=== PATIENT | female | born 1940 | race American Indian/Alaskan Native ===

== ENCOUNTER → 2017-06-05 | Outpatient (CLI) | payer OTHER ==
[~2017-06-05] MED LIST: ALBU90OI6 INH; ALL DAY ALLERGY10 M1 PO; ALLO300 PO; AMLO5 PO; ASPI81CH PO; ASPI81EC PO; ATECHL PO; ATEN50 PO; Aspir 8181 MG PO; Atenolol50 MG PO; CALCAVITD PO; CALPHO600 PO; CYCL10 PO; Calcium + Vita1 EACH PO; DOCU100 PO; FERR325 PO; FISH1000 PO; FLAX PO; GEMF600 PO; Garlic Oil1000 MG PO; Gemfibrozil600 MG PO; HYDHCL25 PO; HYDR1TAB94 PO; LEVEMIR FL100 UNIT/1 SC; LOSA50 PO; METF500 PO; MULVITMIND PO; Multivitamin1 EAC2 PO; NAPR375 PO; Novolog Fl100 UNIT/1 SC; OXYB5 PO; Omeprazole20 M1 PO; PRED10 PO; PRED20; Prednisone20 MG PO; SIMV40 PO; Simvastatin20 MG PO; TRIHYD5075 PO; Vitamin D2000 UNIT PO; WARF1
[2017-06-05 14:48] LABS: BASOPHILS ABSOLUTE AUTO 0.03 K/mm3 (0.00-0.23); BASOPHILS PERCENT AUTO 0 % (0-2); EOSINOPHILS ABSOLUTE AUTO 0.37 K/mm3 (0.00-0.68); EOSINOPHILS PERCENT AUTO 4 % (0-6); Hematocrit 41.1 % (33.0-51.0); Hemoglobin 13.8 g/dL (11.5-16.0); IMMATURE GRAN ABSOLUTE AUTO 0.02 K/mm3 (0.00-0.10); IMMATURE GRAN PERCENT AUTO 0 % (0-1); LYMPHOCYTES ABSOLUTE AUTO 1.29 K/mm3 (0.84-5.20); LYMPHOCYTES PERCENT AUTO 15 % (21-46); MONOCYTES ABSOLUTE AUTO 0.42 K/mm3 (0.16-1.47); MONOCYTES PERCENT AUTO 5 % (4-13); Mean Corpuscular HGB 29.7 pg (26.0-34.0); Mean Corpuscular HGB Conc 33.6 g/dL (31.5-36.5); Mean Corpuscular Volume 88 fL (80-100); Mean Platelet Volume 9.9 fL (9.1-12.4); NEUTROPHILS ABSOLUTE AUTO 6.38 K/mm3 (1.96-9.15); NEUTROPHILS PERCENT AUTO 75 % (41-73); Platelet Count 233 K/mm3 (150-400); RDW Coefficient Variation 13.5 % (11.7-14.2); RDW Standard Deviation 43.2 fL (35.1-46.3); Red Blood Cell Count 4.65 M/mm3 (3.80-5.20); White Blood Cell Count 8.51 K/mm3 (4.00-11.30)
[2017-06-05 14:59] LABS: Alanine Aminotransfer (ALT/SGP 54 U/L (12-78); Albumin, Blood 3.6 g/dL (3.4-5.0); Albumin/Globulin Ratio 0.8 (0.8-1.8); Alk Phos 140 U/L (40-126); Anion Gap 8 mmol/L (6-16); Aspartate Aminotrans (AST/SGOT 37 U/L (12-37); Bilirubin, Total 0.3 mg/dL (0.1-1.0); Blood Urea Nitrogen 15 mg/dL (8-24); Bun/Creatinine Ratio 18.8 (12.0-20.0); CO2, Blood 27 mmol/L (21-32); Calcium, Blood 9.7 mg/dL (8.5-10.1); Chloride, Blood 103 mmol/L (98-108); Globulin, Blood 4.4 g/dL (2.2-4.0); Glomerular Filtration Rate >60 (60-); Glucose, Blood 115 mg/dL (70-99); Potassium, Blood 3.5 mmol/L (3.5-5.5); Sodium, Blood 138 mmol/L (136-145)
== END ==
LOC: LAB SHORT 14:42
PROVIDERS: Physician Assistant
DX: R51 Headache (principal)
CPT/HCPCS: 80053; 85025; 85651

== ENCOUNTER 2017-06-11 09:01 | Day surgery (SDC) | payer OTHER ==
[~2017-06-11] VITALS: Ht 149.9 cm; Wt 78.9 kg
[~2017-06-11 09:01] MED LIST changes: -ALBU90OI6 INH; -ALL DAY ALLERGY10 M1 PO; -ASPI81CH PO; -ATECHL PO; -Calcium + Vita1 EACH PO; -HYDHCL25 PO; -LEVEMIR FL100 UNIT/1 SC; -METF500 PO; -Multivitamin1 EAC2 PO; -Novolog Fl100 UNIT/1 SC; -OXYB5 PO; -Omeprazole20 M1 PO; -PRED10 PO; -PRED20; -Prednisone20 MG PO; -Simvastatin20 MG PO; -Vitamin D2000 UNIT PO
[2017-06-11] MEDS ORDERED: SIMV40 PO (09:59)
[2017-06-11] MEDS ORDERED: OXYB5 PO (10:00)
[2017-06-11] MEDS ORDERED: PRED20 (10:01)
== END 2017-06-11 12:52 | disposition home or self-care (01) ==
LOC: ORSCSDS 09:01
PROVIDERS: Otolaryngology
PROC: 03BS0ZX Excision of Right Temporal Artery, Open Approach, Diagnostic (ICD-10-PCS; principal; 2017-06-11 10:15)
DX: M31.6 Other giant cell arteritis (principal); I10 Essential (primary) hypertension; E78.00 Pure hypercholesterolemia, unspecified; E66.01 Morbid (severe) obesity due to excess calories; Z68.36 Body mass index [BMI] 36.0-36.9, adult; Z79.82 Long term (current) use of aspirin; Z79.899 Other long term (current) drug therapy
CPT/HCPCS: 88305; 88313; 93005; 93010; J0171; J0360; J2250; J3010; J7120

== ENCOUNTER 2017-07-19 15:18 | Observation (INO) | payer OTHER ==
[~2017-07-19] VITALS: Ht 147.3 cm; Wt 75.9 kg
[~2017-07-19 15:18] MED LIST changes: +OXYB5 PO; +PRED20
[2017-07-19] MEDS ORDERED: ALL DAY ALLERGY10 M1 PO (15:25)
[2017-07-19] MEDS ORDERED: ASPI81CH PO (15:25)
[2017-07-19] MEDS ORDERED: ALLO300 PO (15:25)
[2017-07-19] MEDS ORDERED: ATECHL PO (15:26)
[2017-07-19] MEDS ORDERED: GEMF600 PO (15:27)
[2017-07-19] MEDS ORDERED: HYDHCL25 PO (15:27)
[2017-07-19] MEDS ORDERED: LOSA50 PO (15:27)
[2017-07-19] MEDS ORDERED: Calcium + Vita1 EACH PO (15:27)
[2017-07-19] MEDS ORDERED: Multivitamin1 EAC2 PO (15:28)
[2017-07-19] MEDS ORDERED: Prednisone20 MG PO (15:28)
[2017-07-19] MEDS ORDERED: Omeprazole20 M1 PO (15:28)
[2017-07-19] MEDS ORDERED: Simvastatin20 MG PO (15:29)
[2017-07-19] MEDS ORDERED: ALBU90OI6 INH (15:29)
[2017-07-19] MEDS ORDERED: Vitamin D2000 UNIT PO (15:29)
[2017-07-19 15:53] LABS: BASOPHILS ABSOLUTE AUTO 0.02 K/mm3 (0.00-0.23); BASOPHILS PERCENT AUTO 0 % (0-2); EOSINOPHILS ABSOLUTE AUTO 0.07 K/mm3 (0.00-0.68); EOSINOPHILS PERCENT AUTO 1 % (0-6); Hematocrit 42.6 % (33.0-51.0); Hemoglobin 14.3 g/dL (11.5-16.0); IMMATURE GRAN ABSOLUTE AUTO 0.08 K/mm3 (0.00-0.10); IMMATURE GRAN PERCENT AUTO 1 % (0-1); LYMPHOCYTES ABSOLUTE AUTO 0.96 K/mm3 (0.84-5.20); LYMPHOCYTES PERCENT AUTO 10 % (21-46); MONOCYTES ABSOLUTE AUTO 0.45 K/mm3 (0.16-1.47); MONOCYTES PERCENT AUTO 5 % (4-13); Mean Corpuscular HGB 29.4 pg (26.0-34.0); Mean Corpuscular HGB Conc 33.6 g/dL (31.5-36.5); Mean Corpuscular Volume 88 fL (80-100); Mean Platelet Volume 11.1 fL (9.1-12.4); NEUTROPHILS ABSOLUTE AUTO 7.76 K/mm3 (1.96-9.15); NEUTROPHILS PERCENT AUTO 83 % (41-73); Platelet Count 196 K/mm3 (150-400); RDW Coefficient Variation 13.5 % (11.7-14.2); Red Blood Cell Count 4.86 M/mm3 (3.80-5.20); White Blood Cell Count 9.34 K/mm3 (4.00-11.30)
[2017-07-19 16:21] LABS: Alanine Aminotransfer (ALT/SGP 33 U/L (12-78); Albumin, Blood 3.2 g/dL (3.4-5.0); Albumin/Globulin Ratio 0.7 (0.8-1.8); Alk Phos 235 U/L (50-136); Anion Gap 12 mmol/L (6-16); Aspartate Aminotrans (AST/SGOT 17 U/L (12-37); Bilirubin, Total 0.5 mg/dL (0.1-1.0); Blood Urea Nitrogen 33 mg/dL (8-24); CO2, Blood 28 mmol/L (21-32); Calcium, Blood 9.6 mg/dL (8.5-10.1); Chloride, Blood 81 mmol/L (98-108); Creatinine, Blood 1.03 mg/dL (0.40-1.00); Globulin, Blood 4.3 g/dL (2.2-4.0); Glomerular Filtration Rate 55 (60-); Glucose, Blood 1058 mg/dL (70-99); Potassium, Blood 3.6 mmol/L (3.5-5.5); Sodium, Blood 121 mmol/L (136-145); Total Protein, Blood 7.5 g/dL (6.4-8.2)
[2017-07-19 16:49] LABS: Troponin I <0.015 ng/mL (0.000-0.040)
[2017-07-19 18:30] LABS: CHOL/HDL RATIO 6.8; Cholesterol 270 mg/dL (50-200); HDL Cholesterol 40 mg/dL (>39)
[2017-07-19 19:09] LABS: Glucose, Blood 812 mg/dL (70-99)
[2017-07-19 19:10] LABS: LDL/HDL RATIO Unable to Calculate; Low Density Lipoprotein Chol Unable to Calculate mg/dL (0-110); Triglycerides 1204 mg/dL (30-160); Very Low Density Lipoprot Chol 241 mg/dL (6-32)
[2017-07-19 21:07] LABS: Glucose, Blood 663 mg/dL (70-99)
[2017-07-19 21:58] LABS: Glucose, Blood 557 mg/dL (70-99)
[2017-07-20 00:33] LABS: CPK Creatine Kinase 66 U/L (26-193); Troponin I <0.015 ng/mL (0.000-0.040)
[2017-07-20 01:37] LABS: Source, Urine Clean Catch
[2017-07-20 01:39] LABS: Bilirubin, Urine Neg (Neg); Blood, Urine 2+ (Neg); Glucose Qualitative, Urine 4+ (Neg); Ketones, Urine Neg (Neg); Leukocyte Esterase, Urine 2+ (Neg); Nitrite, Urine Neg (Neg); Protein, Urine 2+ (Neg); Urobilinogen, Urine NORM (Normal)
[2017-07-20 01:46] LABS: Appearance, Urine Hazy (Clear); Bacteria Few /hpf; Color, Urine Yellow (P-Yellow); Red Blood Cells, Urine 0-2 /hpf (0-2); Squamous Epithelial Cells Not Seen /hpf (Few); White Blood Cells, Urine 50-100 /hpf (0-5); Yeast/Fungi Urine Few /hpf
[2017-07-20 02:15] LABS: BASOPHILS ABSOLUTE AUTO 0.02 K/mm3 (0.00-0.23); BASOPHILS PERCENT AUTO 0 % (0-2); EOSINOPHILS PERCENT AUTO 2 % (0-6); Hematocrit 37.7 % (33.0-51.0); Hemoglobin 13.1 g/dL (11.5-16.0); IMMATURE GRAN ABSOLUTE AUTO 0.11 K/mm3 (0.00-0.10); IMMATURE GRAN PERCENT AUTO 1 % (0-1); LYMPHOCYTES PERCENT AUTO 22 % (21-46); MONOCYTES ABSOLUTE AUTO 0.46 K/mm3 (0.16-1.47); MONOCYTES PERCENT AUTO 5 % (4-13); Mean Corpuscular HGB 29.4 pg (26.0-34.0); Mean Corpuscular HGB Conc 34.7 g/dL (31.5-36.5); Mean Corpuscular Volume 85 fL (80-100); Mean Platelet Volume 10.5 fL (9.1-12.4); NEUTROPHILS ABSOLUTE AUTO 6.53 K/mm3 (1.96-9.15); NEUTROPHILS PERCENT AUTO 70 % (41-73); Platelet Count 163 K/mm3 (150-400); RDW Coefficient Variation 13.2 % (11.7-14.2); RDW Standard Deviation 40.3 fL (35.1-46.3); Red Blood Cell Count 4.46 M/mm3 (3.80-5.20); White Blood Cell Count 9.32 K/mm3 (4.00-11.30)
[2017-07-20 02:27] LABS: CPK Creatine Kinase 69 U/L (26-193); Troponin I <0.015 ng/mL (0.000-0.040)
[2017-07-20 02:38] LABS: Alanine Aminotransfer (ALT/SGP 31 U/L (12-78); Albumin, Blood 2.8 g/dL (3.4-5.0); Albumin/Globulin Ratio 0.7 (0.8-1.8); Alk Phos 141 U/L (50-136); Anion Gap 7 mmol/L (6-16); Aspartate Aminotrans (AST/SGOT 17 U/L (12-37); Bilirubin, Total 0.4 mg/dL (0.1-1.0); Blood Urea Nitrogen 22 mg/dL (8-24); Bun/Creatinine Ratio 28.4 (12.0-20.0); CO2, Blood 30 mmol/L (21-32); Calcium, Blood 8.6 mg/dL (8.5-10.1); Chloride, Blood 97 mmol/L (98-108); Creatinine, Blood 0.78 mg/dL (0.40-1.00); Globulin, Blood 3.9 g/dL (2.2-4.0); Glomerular Filtration Rate >60 (60-); Glucose, Blood 320 mg/dL (70-99); Potassium, Blood 2.5 mmol/L (3.5-5.5); Total Protein, Blood 6.7 g/dL (6.4-8.2)
[2017-07-20 02:45] LABS: Sodium, Blood 134 mmol/L (136-145)
[2017-07-20 13:25] LABS: Magnesium, Blood 1.7 mg/dL (1.6-2.4)
[2017-07-20 13:26] LABS: Potassium, Blood 3.7 mmol/L (3.5-5.5)
[2017-07-21 05:28] LABS: BASOPHILS ABSOLUTE AUTO 0.01 K/mm3 (0.00-0.23); BASOPHILS PERCENT AUTO 0 % (0-2); EOSINOPHILS ABSOLUTE AUTO 0.05 K/mm3 (0.00-0.68); EOSINOPHILS PERCENT AUTO 1 % (0-6); Hematocrit 38.1 % (33.0-51.0); Hemoglobin 13.1 g/dL (11.5-16.0); IMMATURE GRAN ABSOLUTE AUTO 0.07 K/mm3 (0.00-0.10); IMMATURE GRAN PERCENT AUTO 1 % (0-1); LYMPHOCYTES ABSOLUTE AUTO 1.27 K/mm3 (0.84-5.20); LYMPHOCYTES PERCENT AUTO 14 % (21-46); MONOCYTES ABSOLUTE AUTO 0.49 K/mm3 (0.16-1.47); MONOCYTES PERCENT AUTO 6 % (4-13); Mean Corpuscular HGB 29.6 pg (26.0-34.0); Mean Corpuscular HGB Conc 34.4 g/dL (31.5-36.5); Mean Corpuscular Volume 86 fL (80-100); Mean Platelet Volume 11.1 fL (9.1-12.4); NEUTROPHILS ABSOLUTE AUTO 7.01 K/mm3 (1.96-9.15); NEUTROPHILS PERCENT AUTO 79 % (41-73); Platelet Count 164 K/mm3 (150-400); RDW Coefficient Variation 13.2 % (11.7-14.2); RDW Standard Deviation 41.5 fL (35.1-46.3); Red Blood Cell Count 4.43 M/mm3 (3.80-5.20)
[2017-07-21 06:21] LABS: Alanine Aminotransfer (ALT/SGP 37 U/L (12-78); Albumin, Blood 2.6 g/dL (3.4-5.0); Albumin/Globulin Ratio 0.7 (0.8-1.8); Alk Phos 100 U/L (50-136); Anion Gap 11 mmol/L (6-16); Aspartate Aminotrans (AST/SGOT 22 U/L (12-37); Bilirubin, Total 0.4 mg/dL (0.1-1.0); Blood Urea Nitrogen 21 mg/dL (8-24); CO2, Blood 24 mmol/L (21-32); Calcium, Blood 8.6 mg/dL (8.5-10.1); Chloride, Blood 99 mmol/L (98-108); Creatinine, Blood 0.78 mg/dL (0.40-1.00); Globulin, Blood 3.6 g/dL (2.2-4.0); Glomerular Filtration Rate >60 (60-); Glucose, Blood 361 mg/dL (70-99); Phosphorus, Blood 1.4 mg/dL (2.5-4.9); Potassium, Blood 3.6 mmol/L (3.5-5.5); Sodium, Blood 134 mmol/L (136-145); Total Protein, Blood 6.2 g/dL (6.4-8.2)
[2017-07-22] MEDS ORDERED: ATEN50 PO (13:24)
[2017-07-22] MEDS ORDERED: PRED10 PO (13:24)
[2017-07-22] MEDS ORDERED: Novolog Fl100 UNIT/1 SC (13:25)
[2017-07-22] MEDS ORDERED: LEVEMIR FL100 UNIT/1 SC (13:26)
[2017-07-22] MEDS ORDERED: METF500 PO (13:27)
== END 2017-07-22 15:25 | disposition home or self-care (01) ==
LOC: ER 15:18 → ICUW 15:19 → MEDS 07-20 12:49
PROVIDERS: Internal Medicine; Physician Assistant
DX: E11.65 Type 2 diabetes mellitus with hyperglycemia (principal); E87.1 Hypo-osmolality and hyponatremia; E87.8 Other disorders of electrolyte and fluid balance, not elsewhere classified; E83.39 Other disorders of phosphorus metabolism; E87.6 Hypokalemia; I10 Essential (primary) hypertension; K21.9 Gastro-esophageal reflux disease without esophagitis; E78.00 Pure hypercholesterolemia, unspecified; N17.9 Acute kidney failure, unspecified; E66.9 Obesity, unspecified; I82.509 Chronic embolism and thrombosis of unspecified deep veins of unspecified lower extremity; Z79.82 Long term (current) use of aspirin; Z79.899 Other long term (current) drug therapy; Z79.52 Long term (current) use of systemic steroids; Z96.641 Presence of right artificial hip joint; Z98.890 Other specified postprocedural states
CPT/HCPCS: 36415; 71045; 80053; 80061; 81001; 82550; 82947; 83036; 83735; 84100; 84132; 84484; 85025; 85651; 87086; 93005; 93010; 93306; 96360; 96361; 96372; 99285; G0378; J1650; J1815; J7030; J7060

== ENCOUNTER → 2017-11-11 | Outpatient (CLI) | payer OTHER ==
[~2017-11-11] MED LIST changes: +ALBU90OI6 INH; +ALL DAY ALLERGY10 M1 PO; +ASPI81CH PO; +ATECHL PO; +Calcium + Vita1 EACH PO; +HYDHCL25 PO; +LEVEMIR FL100 UNIT/1 SC; +METF500 PO; +Multivitamin1 EAC2 PO; +Novolog Fl100 UNIT/1 SC; +Omeprazole20 M1 PO; +PRED10 PO; +Prednisone20 MG PO; +Simvastatin20 MG PO; +Vitamin D2000 UNIT PO
== END ==
LOC: LAB SHORT 14:00 → LAB EV 14:00
DX: E11.649 Type 2 diabetes mellitus with hypoglycemia without coma (principal)
CPT/HCPCS: 82043

== ENCOUNTER 2018-05-24 06:48 | Day surgery (SDC) | payer MEDICARE ==
[~2018-05-24] VITALS: Ht 147.3 cm; Wt 69.1 kg
[~2018-05-24 06:48] MED LIST changes: +Aspirin EC81 MG PO; +MULTI VITAMIN1 EACH PO; +NAPR500 PO; +Super Calcium600 MG PO; +VITAMIN D32000 UNIT PO
--- NOTE | 2018-05-24 08:08 | NUR ---
05/24/18 0808 Lobo Silva PT REPORTS HAVING ALLERGY TO SHELLFISH AND SHRIMP. PT DENIES ANY ALLERGY TO BETADINE.
--- NOTE | 2018-05-24 08:49 | NUR ---
05/24/18 0849 Felicia Wyman 0835 DC'D HOME AMB W/INST FOR CARE AND F/U. IFTIKHAR P[O WELL. NO C/O T/O RECOVERY. MAXINE INTACT
== END 2018-05-24 08:35 | disposition home or self-care (01) ==
LOC: ORSCSDS 06:48
PROVIDERS: Ophthalmology
PROC: 08RK3JZ Replacement of Left Lens with Synthetic Substitute, Percutaneous Approach (ICD-10-PCS; principal; 2018-05-24 08:00)
DX: H25.12 Age-related nuclear cataract, left eye (principal); I10 Essential (primary) hypertension; E11.319 Type 2 diabetes mellitus with unspecified diabetic retinopathy without macular edema; Z79.4 Long term (current) use of insulin; Z79.84 Long term (current) use of oral hypoglycemic drugs; Z79.899 Other long term (current) drug therapy; Z79.82 Long term (current) use of aspirin; G47.33 Obstructive sleep apnea (adult) (pediatric)
CPT/HCPCS: J2250; J3010; V2632

== ENCOUNTER 2020-10-01 03:55 | Inpatient (IN) | payer MEDICARE ==
[~2020-10-01] VITALS: Ht 162.6 cm; Wt 70.0 kg
[2020-10-01 04:18] LABS: Source, Urine Catheter
[2020-10-01 04:21] LABS: Hematocrit 37.5 % (33.0-51.0); Hemoglobin 12.3 g/dL (11.5-16.0); Mean Corpuscular HGB Conc 32.8 g/dL (31.5-36.5); Mean Corpuscular Volume 88 fL (80-100); Mean Platelet Volume 9.8 fL (9.1-12.4); Platelet Count 226 K/mm3 (150-400); RDW Coefficient Variation 14.6 % (11.7-14.2); RDW Standard Deviation 46.8 fL (35.1-46.3); Red Blood Cell Count 4.24 M/mm3 (3.80-5.20); White Blood Cell Count 12.98 K/mm3 (4.00-11.30)
[2020-10-01 04:26] LABS: Bilirubin, Urine Neg (Neg); Blood, Urine 4+ (Neg); Glucose Qualitative, Urine Neg (Neg); Ketones, Urine Neg (Neg); Leukocyte Esterase, Urine 3+ (Neg); Nitrite, Urine Pos (Neg); Protein, Urine 3+ (Neg); Specific Gravity, Urine 1.015 (1.003-1.022); Urobilinogen, Urine NORM (Normal)
[2020-10-01 04:31] LABS: Appearance, Urine Hazy (Clear); Color, Urine Yellow (P-Yellow)
[2020-10-01 04:33] LABS: Albumin, Blood 3.2 g/dL (3.4-5.0); Albumin/Globulin Ratio 0.6 (0.8-1.8); Bilirubin, Total 0.6 mg/dL (0.1-1.0); Bun/Creatinine Ratio 18.4 (12.0-20.0); Calcium, Blood 9.9 mg/dL (8.5-10.1); Creatinine, Blood 1.52 mg/dL (0.40-1.00); Globulin, Blood 5.3 g/dL (2.2-4.0); Potassium, Blood 4.1 mmol/L (3.5-5.5); Total Protein, Blood 8.5 g/dL (6.4-8.2)
[2020-10-01 04:35] LABS: Amorphous Mod (0-Heavy); Bacteria Many /hpf; Squamous Epithelial Cells Not Seen /hpf (Few); White Blood Cells, Urine 50-100 /hpf (0-5)
[2020-10-01 04:41] LABS: BAND PERCENT MAN 15 % (0-8); BASOPHILS ABSOLUTE MAN 0.12 K/mm3 (0.00-0.23); BASOPHILS PERCENT MAN 1 % (0-2); EOSINOPHILS PERCENT MAN 0 % (0-6); LYMPHOCYTES PERCENT MAN 7 % (21-46); MONOCYTES PERCENT MAN 7 % (4-13); NEUTROPHILS ABSOLUTE MAN 11.03 K/mm3 (1.96-9.15); SEG NEUTROPHILS PERCENT MAN 70 % (41-73); TOTAL CELLS COUNTED 100
[2020-10-01] MEDS ORDERED: METFORMIN HCL500 M3 PO (06:46)
[2020-10-01] MEDS ORDERED: OLMESARTAN MEDO40 MG PO (06:48)
--- NOTE | 2020-10-01 06:48 | NUR ---
Transfer report from [facility] in ER on PT being admitted with UTI urosepis. PT has hx of bilat carpal tunner release & bilat hip replacement. Will be on Tele monitor, tx as ordered for septic PT. Await admission
[2020-10-01] MEDS ORDERED: ALLER-TEC PO (10:59)
--- NOTE | 2020-10-01 15:44 | NUR ---
PATIENT ARRIVED TO ROOM 357 RIGHT AT SHIFT CHANGED AND WAS TRANSFERED INTO HOSPITAL BED WITH THE ASSISTANCE OF HOSPITAL STAFF. FAUSTINA PENA COMPLETED THE H&P AND MED REC WITH THE PATIENTS ASSISTANCE WELL WITH USING THE MED REC FROM [employer] [facility]. THE PATIENT IS ALERT AND ORIENTED WITH SOME FORGETFULNESS. HAD SOME PAIN LATER THIS MORNING WITH EFFECTIVENESS FROM IV FENTANYL. PATIENT WAS STARTED ON IV ABX WITHOUT S/SX ADVERSE REACTIONS NOTED OR REPORTED FOR SEPSIS R/T UTI. BP WAS HYPOTENSIVE UPON ADMIT TO THE FLOOR AND HYPERTENSIVE THIS AFTERNOON WHEN PATIENT WAS HAVING WHAT APPEARED TO BE A PANIC ATTACK. PATIENT EVENTUALLY CALMED DOWN AND FELL TO SLEEP. PATIENT HAS BEEN SLEEPING SINCE AND CONTINUES TO SLEEP AT THIS TIME. CALL LIGHT IS IN REACH. BED ALARM SET.
--- NOTE | 2020-10-01 20:14 | NUR ---
PT had positive blood culture x 2 called to day RN who contacted pharmacy for appropriate antibiotic coverage & current rx covers what is growing in blood culture x 2. Temp 102.9 gave 650 mg tylenol & oral temp 100.4 now. HX of rt hip replacement remote & rt hip rt le pain decreased with tylenol.
--- NOTE | 2020-10-01 22:32 | NUR ---
verified with DR Zimmerman that Rocephin was adequate to tx gram neg baccili growing in 2 positive BC & she said to verify that IV rocephin vas ordered 1 gram daily. IT is . PT had fever 102.9 tympanic at shift change was given tylenol 650 mg & it was 98.7 oral.
--- NOTE | 2020-10-02 04:51 | NUR ---
PT admitted yesterday at change of shift with sepsis. 2 positive blood cultures on rocephin for UTI covers the 2 posive blood cultures. Fevers & rigers intermittantly. Tylenol 650 mg po x 2 helpful to decrease. Medicated with fentanyl 50 mcg x 1 for rt hip pain with good relief. Continues on IV fluids at 150 ml hr x 3 liters for sepsis. too weak to safely stand using bedpan.
[2020-10-02 04:55] LABS: BASOPHILS ABSOLUTE AUTO 0.02 K/mm3 (0.00-0.23); BASOPHILS PERCENT AUTO 0 % (0-2); Hematocrit 32.5 % (33.0-51.0); Hemoglobin 10.5 g/dL (11.5-16.0); LYMPHOCYTES ABSOLUTE AUTO 0.35 K/mm3 (0.84-5.20); LYMPHOCYTES PERCENT AUTO 4 % (21-46); MONOCYTES ABSOLUTE AUTO 0.62 K/mm3 (0.16-1.47); MONOCYTES PERCENT AUTO 8 % (4-13); Mean Corpuscular HGB 28.6 pg (26.0-34.0); Mean Corpuscular HGB Conc 32.3 g/dL (31.5-36.5); Mean Corpuscular Volume 89 fL (80-100); Mean Platelet Volume 9.8 fL (9.1-12.4); Platelet Count 134 K/mm3 (150-400); RDW Coefficient Variation 14.5 % (11.7-14.2); RDW Standard Deviation 47.4 fL (35.1-46.3); Red Blood Cell Count 3.67 M/mm3 (3.80-5.20); White Blood Cell Count 8.25 K/mm3 (4.00-11.30)
[2020-10-02 04:57] LABS: EOSINOPHILS ABSOLUTE AUTO 0.03 K/mm3 (0.00-0.68); EOSINOPHILS PERCENT AUTO 0 % (0-6); IMMATURE GRAN ABSOLUTE AUTO 0.04 K/mm3 (0.00-0.10); IMMATURE GRAN PERCENT AUTO 1 % (0-1); NEUTROPHILS ABSOLUTE AUTO 7.19 K/mm3 (1.96-9.15); NEUTROPHILS PERCENT AUTO 87 % (41-73)
[2020-10-02 05:17] LABS: Albumin, Blood 2.4 g/dL (3.4-5.0); Albumin/Globulin Ratio 0.6 (0.8-1.8); Bilirubin, Total 0.3 mg/dL (0.1-1.0); Bun/Creatinine Ratio 22.3 (12.0-20.0); Calcium, Blood 8.4 mg/dL (8.5-10.1); Creatinine, Blood 1.12 mg/dL (0.40-1.00); Globulin, Blood 4.2 g/dL (2.2-4.0); Potassium, Blood 3.5 mmol/L (3.5-5.5); Total Protein, Blood 6.6 g/dL (6.4-8.2)
--- NOTE | 2020-10-02 06:29 | NUR ---
Septic PT stared on 3rd liter of NS at 150 ml hr. She had fever & tylenol 650 mg po given rechecked T orally & temp up to 103, then down to 102.2 orally & then 100.[address] Melvin updated no new orders.
--- NOTE | 2020-10-02 15:32 | NUR ---
CARE COORDINATION REFERRAL - ADMIT: 10/01/20 DISCHARGE: DX: SEPSIS CC: LINNEA RONAK CALL: RESIDENCE: HOME WITH SPOUSE CAREGIVER: NADIA DOYLE, SPOUSE / PARTNER, DX: HTN, GERD, GOUT, VERNA, DM-TYPE 2, SEE LIST DME: DM SUPPLIES, CPAP AND SUPPLIES CCM: REFERRAL- 2017 HOME HEALTH: [facility]- 2013 SUMMARY: 10/02/20- PER CHART REVIEW, PT HAS HAD TEMPS OVER THE LAST 24 HRS, POSITIVE BLOOD CULTURES AND STARTED ON IV ANTIBIOTICS. PT ON 2L O2. PT AND OT HAVE BEEN ORDERED DUE TO DECONDITIONING OF PT. -KJW
--- NOTE | 2020-10-02 17:58 | NUR ---
SUMMARY PT SITTING UP IN THE CHAIR AT THE BEDSIDE EATING DINNER, PT HAS BEEN COOPERATIVE WITH CARE T/O THE DAY, CONFUSED OFF AND ON, SPOUSE HAS BEEN IN TO VISIT, PT MED PER EMAR FOR LOW GRADE TEMP WITH GOOD RESULTS, PT C/O R HIP PAIN WITH ACTIVITY, PT WORKED WITH PT/OT, WILL CONT TO MONITOR
--- NOTE | 2020-10-03 04:57 | NUR ---
SHIFT SUMMARY PT IS A 79 Y/O FEMALE, ADMITTED FOR SEPSIS & UTI. SHE IS A&O X 3, BEDREST. PT WAS MEDICATED FOR LLE PAIN WITH PRN FENTANYL AND TYLENOL. NO C/O NAUSEA OR SOB. TELE SHOWED NSR IN THE 90S. VITAL SIGNS STABLE. NO ACUTE CHANGES IN PT CONDITION NOTED DURING THE NIGHT. WILL CONTINUE TO MONITOR AND TREAT PER EMAR UNTIL HAND OFF TO DAY SHIFT RN.
[2020-10-03 06:37] LABS: BASOPHILS ABSOLUTE AUTO 0.03 K/mm3 (0.00-0.23); BASOPHILS PERCENT AUTO 0 % (0-2); Hematocrit 30.6 % (33.0-51.0); Hemoglobin 10.1 g/dL (11.5-16.0); LYMPHOCYTES ABSOLUTE AUTO 0.54 K/mm3 (0.84-5.20); LYMPHOCYTES PERCENT AUTO 7 % (21-46); MONOCYTES ABSOLUTE AUTO 0.56 K/mm3 (0.16-1.47); MONOCYTES PERCENT AUTO 7 % (4-13); Mean Corpuscular HGB 28.7 pg (26.0-34.0); Mean Corpuscular Volume 87 fL (80-100); Mean Platelet Volume 10.4 fL (9.1-12.4); Platelet Count 149 K/mm3 (150-400); RDW Coefficient Variation 14.6 % (11.7-14.2); RDW Standard Deviation 46.5 fL (35.1-46.3); Red Blood Cell Count 3.52 M/mm3 (3.80-5.20); White Blood Cell Count 8.07 K/mm3 (4.00-11.30)
[2020-10-03 06:39] LABS: EOSINOPHILS ABSOLUTE AUTO 0.09 K/mm3 (0.00-0.68); EOSINOPHILS PERCENT AUTO 1 % (0-6); IMMATURE GRAN ABSOLUTE AUTO 0.03 K/mm3 (0.00-0.10); IMMATURE GRAN PERCENT AUTO 0 % (0-1); NEUTROPHILS ABSOLUTE AUTO 6.82 K/mm3 (1.96-9.15); NEUTROPHILS PERCENT AUTO 85 % (41-73)
[2020-10-03 06:56] LABS: Bun/Creatinine Ratio 19.3 (12.0-20.0); Calcium, Blood 8.9 mg/dL (8.5-10.1); Creatinine, Blood 0.99 mg/dL (0.40-1.00); Potassium, Blood 3.4 mmol/L (3.5-5.5)
--- NOTE | 2020-10-03 16:56 | NUR ---
10/03/20- per chart review with Dr. Wilson, pt has severe sepsis and on IV antibiotics. PT and OT have assessed the pt and are recommending SNF and then home with home health after. Filled out referral form for SNF and faxed for review/placement. -ryan
--- NOTE | 2020-10-03 17:54 | NUR ---
PT AOX4 AND COOPERATIVE OF CARE. PT HAS BEEN HAVING A LOT OF OUT OF PROPORTION PAIN IN R HIP AREA WITH TRANSFERS TO COMMODE. PT TREATED PER STALIN AND DR ED LA CRUZ WHO ORDERED XRAY TO BE COMPLETED. PT IS A 1 PERSON TO BEDSIDE COMMODE TODAY. CALL LIGHT IS WITHIN REACH WILL CONTINUE TO MONITOR.
[2020-10-04 06:09] LABS: BASOPHILS ABSOLUTE AUTO 0.02 K/mm3 (0.00-0.23); BASOPHILS PERCENT AUTO 0 % (0-2); EOSINOPHILS ABSOLUTE AUTO 0.19 K/mm3 (0.00-0.68); EOSINOPHILS PERCENT AUTO 2 % (0-6); Hematocrit 29.3 % (33.0-51.0); Hemoglobin 9.8 g/dL (11.5-16.0); IMMATURE GRAN ABSOLUTE AUTO 0.05 K/mm3 (0.00-0.10); IMMATURE GRAN PERCENT AUTO 1 % (0-1); LYMPHOCYTES PERCENT AUTO 7 % (21-46); MONOCYTES ABSOLUTE AUTO 0.77 K/mm3 (0.16-1.47); MONOCYTES PERCENT AUTO 9 % (4-13); Mean Corpuscular HGB 28.9 pg (26.0-34.0); Mean Corpuscular HGB Conc 33.4 g/dL (31.5-36.5); Mean Corpuscular Volume 86 fL (80-100); Mean Platelet Volume 10.5 fL (9.1-12.4); NEUTROPHILS ABSOLUTE AUTO 7.46 K/mm3 (1.96-9.15); NEUTROPHILS PERCENT AUTO 82 % (41-73); Platelet Count 168 K/mm3 (150-400); RDW Coefficient Variation 14.6 % (11.7-14.2); RDW Standard Deviation 46.4 fL (35.1-46.3); Red Blood Cell Count 3.39 M/mm3 (3.80-5.20); White Blood Cell Count 9.09 K/mm3 (4.00-11.30)
--- NOTE | 2020-10-04 06:27 | NUR ---
SHIFT SUMMARY: PATIENT CONTINUES TO HAVE SIGNIFICANT R HIP PAIN WITH ACTIVITY. FENTANYL AND TYLENOL ARE USE WITH ICE WITH GOOD EFFECT. PAIN IS CAUSING PATIENT TO REQUEST BED MADSEN FOR URINATION AT TIMES. VSS AND BED ALARM IS ON FOR SAFWT.
[2020-10-04 06:28] LABS: Anion Gap 7 mmol/L (6-16); Blood Urea Nitrogen 22 mg/dL (8-24); Bun/Creatinine Ratio 24.2 (12.0-20.0); CO2, Blood 22 mmol/L (21-32); Chloride, Blood 107 mmol/L (98-108); Creatinine, Blood 0.91 mg/dL (0.40-1.00); Glomerular Filtration Rate >60 (60-); Glucose, Blood 126 mg/dL (70-99); Potassium, Blood 3.6 mmol/L (3.5-5.5); Sodium, Blood 136 mmol/L (136-145)
[2020-10-04 13:56] LABS: C-REACTIVE PROTEIN, EXT RANGE >19.000 mg/dL (0.000-0.300)
--- NOTE | 2020-10-04 14:14 | NUR ---
10/04/20- per chart review with Dr. Wilson, pt had fever yesterday at 3pm. She will not be able to d/c to SNF until Wednesday. Spoke with Addie with [facility] and she reports that pt would be accepted on Wednesday after she has been 24hrs past fever. Pt will need COVID test, any hard scripts, DC orders and authorization faxed to [phone]. The pt's nurse tomorrow will also have to call admissions to let them know that pt is ready to come to the facility. Their number is [phone]. Informed Dr. Wilson, he will put d/c orders in tomorrow, order COVID test and make sure scripts are ready for pt at discharge. -ryan
--- NOTE | 2020-10-04 18:04 | NUR ---
PT AOX4 AND COOPERATIVE OF CARE. PT CONTINUES TO HAVE PAIN OUT OF PROPORTION WITH ANY MOVEMENT OR TOUCH TO R HIP AND UPPER R THIGH. DR DE LA CRUZ IS AWARE AND MADE SOME CHANGES TO EMAR AND ORDERED SOME NEW TEST. PT HAS BEEN DOING HER BEST AND DID GET UP TO CHAIR AND WAS ABLE TO USE COMMODE AT BEDSIDE WITH TWO PERSON ASSIST AND GAIT BELT. CALL LIGHT IS WITHIN REACH WILL CONTINUE TO MONITOR.
[2020-10-05 05:18] LABS: CHOL/HDL RATIO 5.6; Cholesterol 84 mg/dL (50-200); HDL Cholesterol 15 mg/dL (>39); LDL/HDL RATIO 2.1; Low Density Lipoprotein Chol 32 mg/dL (0-110); Triglycerides 184 mg/dL (30-160); Very Low Density Lipoprot Chol 36 mg/dL (6-32)
--- NOTE | 2020-10-05 06:09 | NUR ---
SHIFT SUMMARY PT CONTINUES TO BE QUITE PAINFUL TO RLE MOSTLY AT THE THIGH AND HIP. PAIN IS WORSE WITH MOVEMENT. ICE PACK OFFERS SOME RELIEF. MEDICATED X 1 W/ 2 MG IV MORPHINE. PT REMAINED IN BED THIS EVENING. REQUESTING TO JUST USE THE BED MADSEN IT WAS TOO PAINFUL TO GET OUT OF BED. PT SLEPT OFF AND ON. TELEMETRY SR 69. VITAL SIGNS STABLE. NO ACUTE CHANGES THIS SHIFT. WILL CONTINUE TO MONITOR.
[2020-10-05 12:23] LABS: SARS-Cov-2 (COVID-19) PCR, MMC NEGATIVE (NEGATIVE)
--- NOTE | 2020-10-05 15:50 | NUR ---
Shift Summary A/Ox3, pleasant and good historian. Continues to c/o R hip/groin pain, surrounding tissue is somewhat hard to palpate and painful. Worked with PT and sat in chair for approximately 1 hour. 2p assist to get back to bed. Continent/incontinent. Medicated for pain per EMAR with minimal relief. Pain only with movement and coughing. Nonproductive cough. Tele: SR 88. Awaiting MRI-R hip. visited briefly. WCTM.
--- NOTE | 2020-10-06 05:59 | NUR ---
SHIFT SUMMARY PT CONTINUES TO BE PAINFUL. WILL FALL ASLEEP BUT WAKE TO PAIN IN RIGHT THIGH. PAIN IS SEVERE WITH ANY SORT OF MOVEMENT. REPOSITIONED PT FOR COMFORT THROUGHOUT THE NIGHT. ICE PACK PROVIDED WHICH PT REPORTS IS BENEFICIAL. PT ALSO MEDICATED X 2 WITH IV MORPHINE. TELEMETRY SR 97. PT DRANK FLUIDS WELL THIS EVENING AND ATE SEVERAL CUPS OF ICE CREAM. NO ACUTE CHANGES THIS SHIFT. PLAN FOR MRI OF R HIP TODAY. PT AWAITING PLACEMENT. TEMPERATURE 100.2 THIS AM. MEDICATED W/ 650 TYLENOL. LAST CHECK 99.0. OTHERWISE VITAL SIGNS STABLE. WILL CONTINUE TO MONITOR.
--- NOTE | 2020-10-06 16:35 | NUR ---
SHIFT SUMMARY PT AxOx4. COOPERATIVE WITH CARE, BUT RESISTANT TO BODY MOVEMENT D/T SEVERE PAIN IN R HIP/LEG. PT WENT FOR MRI OF R HIP TODAY. REPORTS PAIN 8-10 T/O THIS SHIFT. MEDICATED PER EMAR AND ICE PACK APPLIED REGULARLY. PT NAPPING A LOT TODAY. DECLINED TO GET OUT OF BED. PT'S IN FOR VISIT, AND UPDATED ON PLAN OF CARE. BOWEL CARE STARTED D/T NO BM x3 DAYS. PT REPORTS HAVING CHRONIC ISSUES WITH CONSTIPATION. VITALS REVIEWED. PT CURRENTLY RESTING IN BED WITH CALL LIGHT IN REACH. PT DENIES ANY NEEDS AT THIS TIME.
--- NOTE | 2020-10-07 04:38 | NUR ---
SHIFT SUMMARY PT HAS FELT SOME IMPROVEMENT THIS EVENING. CONTINUES TO BE PAINFUL TO R HIP BUT DOES NOT FEEL IT IS SEVERE THIS EVENING. PT SLEPT MUCH OF THE NIGHT. NO PRN MEDICATIONS GIVEN. INCONTINENT. PAINFUL MOSTLY WITH REPOSITIONING. MINIMAL WHEN REMAINING STILL. PT USED ICE PACKS INDEPENDENTLY INTERMITTENTLY FOR COMFORT TO R HIP. SCHEDULED COLACE GIVEN. NO BOWEL MOVEMENT THIS SHIFT. VITAL SIGNS STABLE. NO ACUTE CHANGES THIS SHIFT. WILL CONTINUE TO MONITOR.
[2020-10-07 11:05] LABS: Hematocrit 31.2 % (33.0-51.0); Mean Corpuscular HGB 28.1 pg (26.0-34.0); Mean Corpuscular HGB Conc 32.1 g/dL (31.5-36.5); Mean Corpuscular Volume 88 fL (80-100); Platelet Count 345 K/mm3 (150-400); RDW Coefficient Variation 14.8 % (11.7-14.2); RDW Standard Deviation 48.3 fL (35.1-46.3); Red Blood Cell Count 3.56 M/mm3 (3.80-5.20); White Blood Cell Count 12.97 K/mm3 (4.00-11.30)
[2020-10-07 11:27] LABS: Albumin/Globulin Ratio 0.4 (0.8-1.8); Bilirubin, Total 0.3 mg/dL (0.1-1.0); Bun/Creatinine Ratio 30.4 (12.0-20.0); Calcium, Blood 9.3 mg/dL (8.5-10.1); Creatinine, Blood 1.35 mg/dL (0.40-1.00); Potassium, Blood 3.9 mmol/L (3.5-5.5)
[2020-10-07 12:12] LABS: BAND PERCENT MAN 14 % (0-8); BASOPHILS PERCENT MAN 0 % (0-2); EOSINOPHILS ABSOLUTE MAN 0.38 K/mm3 (0.00-0.68); EOSINOPHILS PERCENT MAN 3 % (0-6); LYMPHOCYTES ABSOLUTE MAN 0.38 K/mm3 (0.84-5.20); LYMPHOCYTES PERCENT MAN 3 % (21-46); METAMYELOCYTE ABSOLUTE MAN 0.12 K/mm3 (0.00-0.00); METAMYELOCYTE PERCENT MAN 1 % (0-0); MONOCYTES ABSOLUTE MAN 0.25 K/mm3 (0.16-1.47); MONOCYTES PERCENT MAN 2 % (4-13); SEG NEUTROPHILS PERCENT MAN 77 % (41-73); TOTAL CELLS COUNTED 100
--- NOTE | 2020-10-07 12:14 | NUR ---
10/07/20- per chart review with Dr. Sanchez, he is going to hold the pt's discharge due to pt's expressing hip pain and elevated lab work. He would like to investigate this more and feels the pt will be stable for d/c either or Wednesday. Update Addie with [facility].-[email or web address]
--- NOTE | 2020-10-07 17:31 | NUR ---
SHIFT SUMMARY PT AxOx4. PLEASANT AND COOPERATIVE WITH CARE. PT REPORTS SIGNIFICANTLY IMPROVED PAIN TODAY. PT WAS ABLE TO GET UP AND WORK WITH PHYSICAL THERAPY AND GET UP TO BSC WITH MODERATE PAIN. PT USING ICE AND IBUPROFEN PRN. VITALS REVIEWED. PT CURRENTLY RESTING IN BED WITH CALL LIGHT IN REACH. DENIES ANY NEEDS AT THIS TIME. CURRENT PLAN IS TO LOOK FOR SNF PLACMENT.
--- NOTE | 2020-10-08 07:45 | NUR ---
SHIFT SUMMARY: PATIENT IS A&OX3, REPORTING OCCASSIONAL R HIP PAIN. IBUPROFEN AND ICE ARE EFFECTIVE FOR PAIN CONTROL. UP TO THE BSC WITH ASSIST OF 1 AND FWW. NO BM SINCE 10/03/20, BOWEL CARE MEDS ARE GIVEN. LARGE AMTS. OF FLATUS AND + BS IN ALL QUADS.
[2020-10-08 10:52] LABS: BASOPHILS ABSOLUTE AUTO 0.06 K/mm3 (0.00-0.23); BASOPHILS PERCENT AUTO 0 % (0-2); Hematocrit 30.2 % (33.0-51.0); Hemoglobin 9.9 g/dL (11.5-16.0); LYMPHOCYTES PERCENT AUTO 4 % (21-46); MONOCYTES ABSOLUTE AUTO 0.74 K/mm3 (0.16-1.47); MONOCYTES PERCENT AUTO 4 % (4-13); Mean Corpuscular HGB 28.4 pg (26.0-34.0); Mean Corpuscular HGB Conc 32.8 g/dL (31.5-36.5); Mean Corpuscular Volume 87 fL (80-100); Mean Platelet Volume 9.9 fL (9.1-12.4); Platelet Count 364 K/mm3 (150-400); RDW Standard Deviation 47.8 fL (35.1-46.3); Red Blood Cell Count 3.48 M/mm3 (3.80-5.20); White Blood Cell Count 16.96 K/mm3 (4.00-11.30)
[2020-10-08 10:53] LABS: EOSINOPHILS ABSOLUTE AUTO 0.19 K/mm3 (0.00-0.68); EOSINOPHILS PERCENT AUTO 1 % (0-6); IMMATURE GRAN ABSOLUTE AUTO 0.26 K/mm3 (0.00-0.10); IMMATURE GRAN PERCENT AUTO 2 % (0-1); NEUTROPHILS ABSOLUTE AUTO 15.11 K/mm3 (1.96-9.15); NEUTROPHILS PERCENT AUTO 89 % (41-73)
[2020-10-08 11:09] LABS: Bun/Creatinine Ratio 31.9 (12.0-20.0); Calcium, Blood 9.5 mg/dL (8.5-10.1); Creatinine, Blood 1.19 mg/dL (0.40-1.00)
--- NOTE | 2020-10-08 14:29 | NUR ---
10/08/20- per chart review Dr. Sanchez, pt is not wanting to go to SNF and is wanting to go to home with home health. She reports her hip pain has improved and she is working with therapy to try and go home. Dr. Sanchez is willing to assess pt in 24 hrs. Pt still needs IV antibiotics and will be switched to oral antibiotics. D/c plan will be discussed tomorrow. -ryan
--- NOTE | 2020-10-08 18:21 | NUR ---
SHIFT SUMMARY PT MEDICATED FOR PAIN ONLY ONCE TODAY. THIS AM, PT DID WELL WITH HER MOBILITY AND ALERTNESS. THIS AFTERNOON, PT BECAME MORE DROWSY AND HAD MORE DIFFICULTY WITH FORMING SENTENCES. DR. JUAN ORDERED A MRI OF THE HEAD. PT CURRENLTY IN IMAGING FOR THIS. NO OTHER ACUTE CHANGES IN ASSESSMENT AT THIS TIME. VS REVIEWED. PT VISITED BY FAMILY EARLIER IN THE SHIFT.
--- NOTE | 2020-10-09 04:53 | NUR ---
SUMMARY NO NEW ISSUES NOTED. PT HAD NO COMPLAINT OF PAIN. PT UP WITH HELP TO USE RESTROOM W/OUT ISSUE. PT HAS SLEPT T/O SHIFT. PT CURRENTLY SLEEPING IN NO DISTRESS. CALL LIGHT IN REACH.
[2020-10-09 09:54] LABS: BASOPHILS ABSOLUTE AUTO 0.04 K/mm3 (0.00-0.23); BASOPHILS PERCENT AUTO 0 % (0-2); EOSINOPHILS ABSOLUTE AUTO 0.09 K/mm3 (0.00-0.68); EOSINOPHILS PERCENT AUTO 1 % (0-6); Hematocrit 32.3 % (33.0-51.0); Hemoglobin 10.4 g/dL (11.5-16.0); IMMATURE GRAN ABSOLUTE AUTO 0.29 K/mm3 (0.00-0.10); IMMATURE GRAN PERCENT AUTO 2 % (0-1); LYMPHOCYTES ABSOLUTE AUTO 0.51 K/mm3 (0.84-5.20); LYMPHOCYTES PERCENT AUTO 3 % (21-46); MONOCYTES PERCENT AUTO 3 % (4-13); Mean Corpuscular HGB 28.3 pg (26.0-34.0); Mean Corpuscular HGB Conc 32.2 g/dL (31.5-36.5); Mean Corpuscular Volume 88 fL (80-100); Mean Platelet Volume 9.6 fL (9.1-12.4); NEUTROPHILS ABSOLUTE AUTO 14.17 K/mm3 (1.96-9.15); NEUTROPHILS PERCENT AUTO 91 % (41-73); Platelet Count 443 K/mm3 (150-400); RDW Coefficient Variation 15.1 % (11.7-14.2); RDW Standard Deviation 48.3 fL (35.1-46.3); Red Blood Cell Count 3.68 M/mm3 (3.80-5.20)
[2020-10-09 10:31] LABS: Bun/Creatinine Ratio 28.4 (12.0-20.0); Calcium, Blood 9.3 mg/dL (8.5-10.1); Creatinine, Blood 1.02 mg/dL (0.40-1.00); Potassium, Blood 3.7 mmol/L (3.5-5.5)
--- NOTE | 2020-10-09 13:26 | NUR ---
CARE COORDINATION REFERRAL - ADMIT: 10/01/20 DISCHARGE: DX: SEPSIS CC: [id number] SUMMARY: 10/09/20- MET WITH PT AND SHE REPORTS THAT PRIOR TO COMING INTO THE HOSPITAL, PT WAS VERY INDEPENDENT, NO NEED CAREGIVERS AND NOT ACTIVE WITH ANY HOME HEALTH. PT LIVES AT HOME WITH HER IN A SINGLE-STORY DWELLING, THERE ARE NOT STAIRS IN THE HOME. THEY HAVE A HANDICAP RAMP. THEIR HOME HAS ALL UTILITIES. PT HAS NO CONCERNS ABOUT GOING HOME. PT REPORTS THAT HER WILL BE ABLE TO TAKE HER HOME AND HE WILL BE ABLE TO MANAGER [employer]ARM[employer] ANY PRESCRIPTIONS SENT TO [employer]. PT IS ABLE TO MANAGE HER OWN MEDICATIONS. SHE HAS NO DME NEEDS AT THIS TIME. PT STATES THAT SHE HAS A HISTORY FACULTY MEMBER THAT HAS HER WILL AND HER WISHES. HER NEXT OF KIN IS HER . DISCUSSED WITH PT THE RECOMMENDATION IS FOR HER TO GO HOME WITH HOME HEALTH AND SHE WOULD LIKE TO USE [employer] FOR THIS SERVICE. NOTIFIED SINA, HOSPITAL LIAISON, AND SHE WILL MEET WITH THE PT TO SET UP SERVICES. DISCUSSED WITH THE PT RONAK CALL AND LETTER AND THAT SHE WILL BE RECEIVING A CALL WITHIN 24-48 HRS OF DISCHARGE. PT ACKNOWLEDGED UNDERSTANDING AND IS EXCITED TO BE GOING HOME. -DAMASO
--- NOTE | 2020-10-09 16:47 | NUR ---
SHIFT SUMMARY- PT A/OX4, 1 ASSIST WITH FWW AND GAIT BELT OUT OF BED. PT REPORTS PAIN TO RIGHT HIP WITH MOVEMENT ONLY, DENIES NEED FOR PAIN MEDS TODAY. LS CLEAR, ON RA. HRR. PT UP TO CHAIR FOR MEALS AND AMBULATED TO BATHROOM AND SHOWERED TODAY. BOWEL MEDS GIVEN FOR NO BM SINCE 10/03, PT IS PASSING GAS. NO OTHER COMPLAINTS OR ACUTE CHANGES THIS SHIFT. POSSIBLE D/C HOME WITH HOME HEALTH TOMORROW.
--- NOTE | 2020-10-10 03:54 | NUR ---
SUMMARY PT HAD SOME INCREASED PAIN THIS SHIFT. PT X PER EMAR W/ RELIEF. PT HAS BEEN ABLE TO SLEEP AND REST COMFORTABLY. PT CURRENTLY SLEEPING IN NO DISTRESS. CALL LIGHT IN REACH.
[2020-10-10 09:50] LABS: BASOPHILS ABSOLUTE AUTO 0.03 K/mm3 (0.00-0.23); BASOPHILS PERCENT AUTO 0 % (0-2); EOSINOPHILS ABSOLUTE AUTO 0.12 K/mm3 (0.00-0.68); EOSINOPHILS PERCENT AUTO 1 % (0-6); Hematocrit 31.6 % (33.0-51.0); Hemoglobin 10.3 g/dL (11.5-16.0); IMMATURE GRAN ABSOLUTE AUTO 0.22 K/mm3 (0.00-0.10); IMMATURE GRAN PERCENT AUTO 2 % (0-1); LYMPHOCYTES ABSOLUTE AUTO 0.63 K/mm3 (0.84-5.20); LYMPHOCYTES PERCENT AUTO 5 % (21-46); MONOCYTES ABSOLUTE AUTO 0.55 K/mm3 (0.16-1.47); MONOCYTES PERCENT AUTO 4 % (4-13); Mean Corpuscular HGB 28.5 pg (26.0-34.0); Mean Corpuscular HGB Conc 32.6 g/dL (31.5-36.5); Mean Corpuscular Volume 87 fL (80-100); Mean Platelet Volume 9.3 fL (9.1-12.4); NEUTROPHILS ABSOLUTE AUTO 11.08 K/mm3 (1.96-9.15); NEUTROPHILS PERCENT AUTO 88 % (41-73); Platelet Count 430 K/mm3 (150-400); RDW Coefficient Variation 15.2 % (11.7-14.2); RDW Standard Deviation 48.6 fL (35.1-46.3); Red Blood Cell Count 3.62 M/mm3 (3.80-5.20); White Blood Cell Count 12.63 K/mm3 (4.00-11.30)
[2020-10-10 10:40] LABS: Anion Gap 8 mmol/L (6-16); Blood Urea Nitrogen 27 mg/dL (8-24); Bun/Creatinine Ratio 28.4 (12.0-20.0); CO2, Blood 24 mmol/L (21-32); Calcium, Blood 9.4 mg/dL (8.5-10.1); Chloride, Blood 102 mmol/L (98-108); Creatinine, Blood 0.95 mg/dL (0.40-1.00); Glomerular Filtration Rate >60 (60-); Glucose, Blood 154 mg/dL (70-99); Potassium, Blood 3.8 mmol/L (3.5-5.5); Sodium, Blood 134 mmol/L (136-145)
--- NOTE | 2020-10-10 14:58 | NUR ---
10/10/20- per chart review with Dr. Sanchez, plan is for pt to discharge tomorrow. This will allow to complete 10-day IV antibiotics. Pt's sister is also coming into town to help care for her and this will allow time for the sister to get up here to take care of her. Once pt d/c, [facility] will provide care for the pt. -ryan
--- NOTE | 2020-10-10 16:19 | NUR ---
PT IS A/OX3, PLEASANT AND COOPERATIVE, THE PT IS UP WITH MINIMAL ASSIST TO THE BATHROOM TODAY, THE PT WORKED WITH THE PHYSICAL THERAPIST AND TOLERATED THAT WELL, THE PT WAS MEDICATED FOR PAIN X1 THIS AFTERNOON, THE PT APPEARS TO BE BREATHING EASILY ON RA AT THIS TIME, CALL LIGHT IN REACH, PTS IS AT THE BEDSIDE AT THIS TIME. WILL CONTINUE TO MONITOR AND ASSESS FOR CHANGES
--- NOTE | 2020-10-11 04:29 | NUR ---
SHIFT SUMMARY NO ACUTE CHANGES TO REPORT THIS SHIFT, PT HAS RESTED MOST OF THE NIGHT, NO COMPLAINTS OF PAIN. PT A/OX4, PLAN IS FOR DC TODAY. BED IN LOWEST POSITION, CALL LIGHT WITHIN REACH.
[2020-10-11] MEDS ORDERED: IBUP800 PO (11:05)
--- NOTE | 2020-10-11 13:39 | NUR ---
PT DISCHARGED TO HOME VIA WC WITH . PT EDUCATED ABOUT FOLLOWING WITH PCP [facility] NEEDED. PT ALSO AWARE ABOUT HOMEHEALTH WILL CONTACT HER. PT GIVEN MEDICATION LIST AND PACKETS INSTRUCTION. PT VALUABLE ITEMS WITH PT. MEDICATION FAXED TO [facility] [employer]. NO FURTHER CONCERNS. BED IS IN THE LOWEST POSITION AND CALL LIGHT WITHIN REACH. IV DC'D/
== END 2020-10-11 13:27 | disposition home health service (06) | DRG 872 ==
LOC: ER 03:55 → MEDS 05:55
PROVIDERS: Emergency Medicine; Family Medicine; Internal Medicine; ADMIT Internal Medicine
DX: A41.51 Sepsis due to Escherichia coli [E. coli] (principal); N17.9 Acute kidney failure, unspecified; N10 Acute pyelonephritis; E87.2 Acidosis; G93.40 Encephalopathy, unspecified; E78.00 Pure hypercholesterolemia, unspecified; Z20.822 Contact with and (suspected) exposure to COVID-19; R65.20 Severe sepsis without septic shock; K21.9 Gastro-esophageal reflux disease without esophagitis; E78.5 Hyperlipidemia, unspecified; E66.01 Morbid (severe) obesity due to excess calories; N32.81 Overactive bladder; M85.80 Other specified disorders of bone density and structure, unspecified site; G47.33 Obstructive sleep apnea (adult) (pediatric); M10.9 Gout, unspecified; K76.0 Fatty (change of) liver, not elsewhere classified; M79.81 Nontraumatic hematoma of soft tissue; I12.9 Hypertensive chronic kidney disease with stage 1 through stage 4 chronic kidney disease, or unspecified chronic kidney disease; N18.30 Chronic kidney disease, stage 3 unspecified; E11.22 Type 2 diabetes mellitus with diabetic chronic kidney disease; Z96.641 Presence of right artificial hip joint; Z91.19 Patient's noncompliance with other medical treatment and regimen; Z86.718 Personal history of other venous thrombosis and embolism; Z98.890 Other specified postprocedural states; Z91.013 Allergy to seafood; Z79.82 Long term (current) use of aspirin; Z79.899 Other long term (current) drug therapy
CPT/HCPCS: 36415; 70551; 71045; 72158; 73502; 73721; 76770; 80048; 80053; 80061; 81001; 82550; 82607; 82746; 83036; 83605; 85025; 85651; 86140; 87040; 87077; 87086; 87186; 93005; 93010; 96365; 97110; 97116; 97140; 97162; 97166; 97530; 97535; 99285-25; A9270; A9579; J0696; J1650; J2270; J3010; J7030; P9612; U0004

== ENCOUNTER → 2020-11-21 | Outpatient (CLI) | payer MEDICARE ==
[~2020-11-21] MED LIST changes: +ALLER-TEC PO; +IBUP800 PO; +METFORMIN HCL500 M3 PO; +OLMESARTAN MEDO40 MG PO
[2020-11-23 13:15] LABS: Stool Occult Bld Immuno 1 Negative (NEGATIVE); Stool Occult Bld Immuno 2 Negative (NEGATIVE); Stool Occult Bld Immuno 3 Negative (NEGATIVE)
== END | disposition home or self-care (01) ==
LOC: LAB SHORT 16:30
PROVIDERS: Physician Assistant
DX: D50.9 Iron deficiency anemia, unspecified (principal)
CPT/HCPCS: 82274

== ENCOUNTER 2021-02-24 11:19 | Day surgery (SDC) | payer MEDICARE ==
[2021-02-20 15:30] LABS: CORONAVIRUS (COVID19) CSH-NRL Negative (Negative)
[~2021-02-24] VITALS: Ht 149.9 cm; Wt 59.7 kg
[~2021-02-24 11:19] MED LIST changes: +Aspir 8181 MG; +CALCIUM CARBON500 M1; +ERGO400; +TRAM50; +UBID100
[2021-02-24] MEDS ORDERED: ACET325 PO (11:54)
== END 2021-02-24 13:03 | disposition home or self-care (01) ==
LOC: ORSCSDS 11:19
PROVIDERS: Internal Medicine Gastroenterology
PROC: 0DJD8ZZ Inspection of Lower Intestinal Tract, Via Natural or Artificial Opening Endoscopic (ICD-10-PCS; principal; 2021-02-24 12:30)
DX: R63.4 Abnormal weight loss (principal); Z86.010 Personal history of colon polyps; K57.30 Diverticulosis of large intestine without perforation or abscess without bleeding; I10 Essential (primary) hypertension; E11.9 Type 2 diabetes mellitus without complications; Z79.82 Long term (current) use of aspirin; Z79.84 Long term (current) use of oral hypoglycemic drugs; Z79.899 Other long term (current) drug therapy
CPT/HCPCS: 82947; J2704; J7120; U0003

== ENCOUNTER → 2021-02-27 | Outpatient (CLI) | payer MEDICARE ==
[~2021-02-27] MED LIST changes: +ACET325 PO
[2021-03-04 11:08] LABS: HPV 16 Negative (Negative); HPV 18 Negative (Negative); HPV OTHER HR TYPES Negative (Negative)
== END ==
LOC: LAB 09:45 → LAB SHORT 09:45
PROVIDERS: Physician Assistant
DX: Z01.419 Encounter for gynecological examination (general) (routine) without abnormal findings (principal)
CPT/HCPCS: 87624; G0123

== ENCOUNTER → 2021-03-11 | Outpatient (CLI) | payer MEDICARE ==
[2021-03-13 15:12] LABS: HPV 16 Negative (Negative); HPV 18 Negative (Negative); HPV OTHER HR TYPES Negative (Negative)
== END | disposition home or self-care (01) ==
LOC: LAB SHORT 18:39 → LAB 18:39
PROVIDERS: Physician Assistant
DX: Z01.419 Encounter for gynecological examination (general) (routine) without abnormal findings (principal)
CPT/HCPCS: 87624; G0123

== ENCOUNTER → 2021-04-23 | Outpatient (CLI) | payer MEDICARE ==
[2021-04-24 09:45] LABS: Stool Occult Bld Immuno 1 Negative (NEGATIVE)
== END | disposition home or self-care (01) ==
LOC: LAB EV 15:23 → LAB SHORT 15:23 → LAB 15:23
PROVIDERS: Internal Medicine Gastroenterology
DX: D64.9 Anemia, unspecified (principal)
CPT/HCPCS: 82274

== ENCOUNTER → 2021-09-01 | Outpatient (CLI) | payer MEDICARE ==
[2021-09-01 18:11] LABS: BASOPHILS ABSOLUTE AUTO 0.03 K/mm3 (0.00-0.23); BASOPHILS PERCENT AUTO 0 % (0-2); EOSINOPHILS ABSOLUTE AUTO 0.33 K/mm3 (0.00-0.68); EOSINOPHILS PERCENT AUTO 5 % (0-6); Hematocrit 26.5 % (33.0-51.0); Hemoglobin 8.3 g/dL (11.5-16.0); IMMATURE GRAN ABSOLUTE AUTO 0.29 K/mm3 (0.00-0.10); IMMATURE GRAN PERCENT AUTO 4 % (0-1); LYMPHOCYTES ABSOLUTE AUTO 0.61 K/mm3 (0.84-5.20); LYMPHOCYTES PERCENT AUTO 9 % (21-46); MONOCYTES ABSOLUTE AUTO 0.38 K/mm3 (0.16-1.47); MONOCYTES PERCENT AUTO 6 % (4-13); Mean Corpuscular HGB 28.5 pg (26.0-34.0); Mean Corpuscular HGB Conc 31.3 g/dL (31.5-36.5); Mean Corpuscular Volume 91 fL (80-100); Mean Platelet Volume 9.5 fL (9.1-12.4); NEUTROPHILS ABSOLUTE AUTO 5.24 K/mm3 (1.96-9.15); NEUTROPHILS PERCENT AUTO 76 % (41-73); NRBC ABSOLUTE 0.03 K/mm3 (0.00-0.02); NRBC Auto 0.4 /100 WBC (0.0-0.2); Platelet Count 357 K/mm3 (150-400); RDW Coefficient Variation 15.6 % (11.7-14.2); RDW Standard Deviation 50.8 fL (35.1-46.3); Red Blood Cell Count 2.91 M/mm3 (3.80-5.20); White Blood Cell Count 6.88 K/mm3 (4.00-11.30)
[2021-09-01 18:45] LABS: Anion Gap 8 mmol/L (6-16); Blood Urea Nitrogen 16 mg/dL (8-24); Bun/Creatinine Ratio 19.3 (12.0-20.0); CO2, Blood 24 mmol/L (21-32); Calcium, Blood 9.1 mg/dL (8.5-10.1); Chloride, Blood 105 mmol/L (98-108); Creatinine, Blood 0.83 mg/dL (0.40-1.00); Glomerular Filtration Rate >60 (60-); Glucose, Blood 195 mg/dL (70-99); Potassium, Blood 4.2 mmol/L (3.5-5.5); Sodium, Blood 137 mmol/L (136-145)
== END ==
LOC: LAB SHORT 17:56
PROVIDERS: Internal Medicine
DX: T84.51XA Infection and inflammatory reaction due to internal right hip prosthesis, initial encounter (principal); I10 Essential (primary) hypertension; M19.90 Unspecified osteoarthritis, unspecified site; G47.33 Obstructive sleep apnea (adult) (pediatric); Z96.641 Presence of right artificial hip joint
CPT/HCPCS: 80048; 85025; 86140

== ENCOUNTER → 2021-09-08 | Outpatient (CLI) | payer MEDICARE ==
[2021-09-08 15:52] LABS: BASOPHILS ABSOLUTE AUTO 0.05 K/mm3 (0.00-0.23); BASOPHILS PERCENT AUTO 1 % (0-2); EOSINOPHILS ABSOLUTE AUTO 0.46 K/mm3 (0.00-0.68); EOSINOPHILS PERCENT AUTO 5 % (0-6); Hematocrit 28.4 % (33.0-51.0); Hemoglobin 8.9 g/dL (11.5-16.0); IMMATURE GRAN PERCENT AUTO 1 % (0-1); LYMPHOCYTES PERCENT AUTO 7 % (21-46); MONOCYTES ABSOLUTE AUTO 0.36 K/mm3 (0.16-1.47); MONOCYTES PERCENT AUTO 4 % (4-13); Mean Corpuscular HGB 28.8 pg (26.0-34.0); Mean Corpuscular HGB Conc 31.3 g/dL (31.5-36.5); Mean Corpuscular Volume 92 fL (80-100); Mean Platelet Volume 9.2 fL (9.1-12.4); NEUTROPHILS ABSOLUTE AUTO 7.92 K/mm3 (1.96-9.15); NEUTROPHILS PERCENT AUTO 83 % (41-73); Platelet Count 342 K/mm3 (150-400); RDW Coefficient Variation 16.9 % (11.7-14.2); RDW Standard Deviation 55.1 fL (35.1-46.3); Red Blood Cell Count 3.09 M/mm3 (3.80-5.20); White Blood Cell Count 9.59 K/mm3 (4.00-11.30)
[2021-09-08 16:05] LABS: Alanine Aminotransfer (ALT/SGP 21 U/L (12-78); Albumin, Blood 3.2 g/dL (3.4-5.0); Albumin/Globulin Ratio 0.8 (0.8-1.8); Alk Phos 155 U/L (40-126); Anion Gap 7 mmol/L (6-16); Aspartate Aminotrans (AST/SGOT 21 U/L (12-37); Bilirubin, Total 0.2 mg/dL (0.1-1.0); Blood Urea Nitrogen 15 mg/dL (8-24); Bun/Creatinine Ratio 16.9 (12.0-20.0); CO2, Blood 29 mmol/L (21-32); Calcium, Blood 9.4 mg/dL (8.5-10.1); Chloride, Blood 104 mmol/L (98-108); Creatinine, Blood 0.89 mg/dL (0.40-1.00); Glomerular Filtration Rate >60 (60-); Glucose, Blood 105 mg/dL (70-99); Potassium, Blood 4.1 mmol/L (3.5-5.5); Sodium, Blood 140 mmol/L (136-145); Total Protein, Blood 7.2 g/dL (6.4-8.2)
== END | disposition home or self-care (01) ==
LOC: LAB SHORT 15:46
PROVIDERS: Physician Assistant
DX: I13.10 Hypertensive heart and chronic kidney disease without heart failure, with stage 1 through stage 4 chronic kidney disease, or unspecified chronic kidney disease (principal); N18.31 Chronic kidney disease, stage 3a; R73.9 Hyperglycemia, unspecified
CPT/HCPCS: 80053; 83036; 85025

== ENCOUNTER → 2021-09-09 | Outpatient (CLI) | payer MEDICARE ==
[2021-09-09 13:24] LABS: Hematocrit 28.6 % (33.0-51.0); Hemoglobin 8.8 g/dL (11.5-16.0); Mean Corpuscular HGB 28.8 pg (26.0-34.0); Mean Corpuscular HGB Conc 30.8 g/dL (31.5-36.5); Mean Corpuscular Volume 94 fL (80-100); Mean Platelet Volume 9.6 fL (9.1-12.4); Platelet Count 342 K/mm3 (150-400); RDW Coefficient Variation 16.5 % (11.7-14.2); RDW Standard Deviation 56.1 fL (35.1-46.3); Red Blood Cell Count 3.06 M/mm3 (3.80-5.20)
[2021-09-09 14:29] LABS: Anion Gap 8 mmol/L (6-16); Blood Urea Nitrogen 18 mg/dL (8-24); Bun/Creatinine Ratio 26.5 (12.0-20.0); CO2, Blood 24 mmol/L (21-32); Calcium, Blood 9.6 mg/dL (8.5-10.1); Chloride, Blood 106 mmol/L (98-108); Creatinine, Blood 0.68 mg/dL (0.40-1.00); Glomerular Filtration Rate >60 (60-); Glucose, Blood 119 mg/dL (70-99); Sodium, Blood 138 mmol/L (136-145)
== END ==
LOC: LAB 10:45 → LAB SHORT 10:45
PROVIDERS: Student in an Organized Health Care Education/Training Program
DX: T84.51XA Infection and inflammatory reaction due to internal right hip prosthesis, initial encounter (principal); M10.9 Gout, unspecified; E78.00 Pure hypercholesterolemia, unspecified; I10 Essential (primary) hypertension; Z79.84 Long term (current) use of oral hypoglycemic drugs; Z95.2 Presence of prosthetic heart valve
CPT/HCPCS: 80048; 85027; 86140

== ENCOUNTER → 2021-09-16 | Outpatient (CLI) | payer MEDICARE ==
[2021-09-16 12:25] LABS: Hematocrit 29.9 % (33.0-51.0); Hemoglobin 9.2 g/dL (11.5-16.0); Mean Corpuscular HGB 28.4 pg (26.0-34.0); Mean Corpuscular HGB Conc 30.8 g/dL (31.5-36.5); Mean Corpuscular Volume 92 fL (80-100); Mean Platelet Volume 10.1 fL (9.1-12.4); Platelet Count 318 K/mm3 (150-400); RDW Coefficient Variation 15.5 % (11.7-14.2); RDW Standard Deviation 52.6 fL (35.1-46.3); Red Blood Cell Count 3.24 M/mm3 (3.80-5.20); White Blood Cell Count 5.58 K/mm3 (4.00-11.30)
[2021-09-16 12:28] LABS: C-REACTIVE PROTEIN, EXT RANGE 1.16 mg/dL (0.000-0.300)
[2021-09-16 12:30] LABS: Bun/Creatinine Ratio 30.6 (12.0-20.0); Calcium, Blood 9.4 mg/dL (8.5-10.1); Creatinine, Blood 0.56 mg/dL (0.40-1.00); Potassium, Blood 3.8 mmol/L (3.5-5.5)
== END | disposition home or self-care (01) ==
LOC: LAB 10:35 → LAB SHORT 10:35
PROVIDERS: Physician Assistant
DX: Z45.2 Encounter for adjustment and management of vascular access device (principal); T84.51XA Infection and inflammatory reaction due to internal right hip prosthesis, initial encounter; E78.00 Pure hypercholesterolemia, unspecified; M10.9 Gout, unspecified; E11.9 Type 2 diabetes mellitus without complications; I10 Essential (primary) hypertension; Z79.84 Long term (current) use of oral hypoglycemic drugs
CPT/HCPCS: 80048; 85027; 86140

== ENCOUNTER → 2021-09-23 | Outpatient (CLI) | payer MEDICARE ==
[2021-09-23 12:25] LABS: Hematocrit 31.8 % (33.0-51.0); Mean Corpuscular HGB 28.3 pg (26.0-34.0); Mean Corpuscular HGB Conc 31.4 g/dL (31.5-36.5); Mean Corpuscular Volume 90 fL (80-100); Mean Platelet Volume 10.6 fL (9.1-12.4); Platelet Count 307 K/mm3 (150-400); RDW Coefficient Variation 14.7 % (11.7-14.2); RDW Standard Deviation 48.6 fL (35.1-46.3); Red Blood Cell Count 3.53 M/mm3 (3.80-5.20); White Blood Cell Count 6.37 K/mm3 (4.00-11.30)
[2021-09-23 13:16] LABS: Bun/Creatinine Ratio 40.1 (12.0-20.0); C-REACTIVE PROTEIN, EXT RANGE 4.24 mg/dL (0.000-0.300); Calcium, Blood 9.9 mg/dL (8.5-10.1); Creatinine, Blood 0.65 mg/dL (0.40-1.00)
== END | disposition home or self-care (01) ==
LOC: LAB SHORT 10:00
PROVIDERS: Physician Assistant
DX: T84.51XA Infection and inflammatory reaction due to internal right hip prosthesis, initial encounter (principal); E11.9 Type 2 diabetes mellitus without complications; M10.9 Gout, unspecified; E78.00 Pure hypercholesterolemia, unspecified; I10 Essential (primary) hypertension; Z45.2 Encounter for adjustment and management of vascular access device; Z79.84 Long term (current) use of oral hypoglycemic drugs
CPT/HCPCS: 80048; 85027; 86140

== ENCOUNTER → 2021-09-30 | Outpatient (CLI) | payer MEDICARE ==
[2021-09-30 13:38] LABS: Bun/Creatinine Ratio 30.8 (12.0-20.0); C-REACTIVE PROTEIN, EXT RANGE 2.43 mg/dL (0.000-0.300); Calcium, Blood 9.7 mg/dL (8.5-10.1); Creatinine, Blood 0.75 mg/dL (0.40-1.00); Potassium, Blood 3.8 mmol/L (3.5-5.5)
[2021-09-30 13:47] LABS: Hematocrit 31.9 % (33.0-51.0); Hemoglobin 10.2 g/dL (11.5-16.0); Mean Corpuscular HGB 28.5 pg (26.0-34.0); Mean Corpuscular Volume 89 fL (80-100); Mean Platelet Volume 10.6 fL (9.1-12.4); Platelet Count 304 K/mm3 (150-400); RDW Coefficient Variation 14.3 % (11.7-14.2); RDW Standard Deviation 46.5 fL (35.1-46.3); Red Blood Cell Count 3.58 M/mm3 (3.80-5.20); White Blood Cell Count 7.36 K/mm3 (4.00-11.30)
== END ==
LOC: LAB SHORT 12:56
PROVIDERS: Student in an Organized Health Care Education/Training Program
DX: T84.51XA Infection and inflammatory reaction due to internal right hip prosthesis, initial encounter (principal); Z45.2 Encounter for adjustment and management of vascular access device; E11.9 Type 2 diabetes mellitus without complications; I10 Essential (primary) hypertension; M10.9 Gout, unspecified; E78.00 Pure hypercholesterolemia, unspecified; Z79.84 Long term (current) use of oral hypoglycemic drugs
CPT/HCPCS: 80048; 85027; 86140

== ENCOUNTER 2021-10-17 00:47 | Day surgery (SDC) | payer MEDICARE ==
[~2021-10-17 00:47] MED LIST changes: -ERGO400; +Vitamin D1000 UNI1 PO
[2021-10-17] MEDS ORDERED: DOCU100 PO (10:51)
[2021-10-17] MEDS ORDERED: DHEA 10 MG TAB1 EAC1 PO (10:51)
[2021-10-17] MEDS ORDERED: MULVITA PO (10:52)
[2021-10-17] MEDS ORDERED: PROG100 PO (10:55)
[2021-10-17] MEDS ORDERED: SENNA LAXATIVE8.6 MG PO (10:56)
== END 2021-10-17 09:36 | disposition home or self-care (01) ==
LOC: ATC 00:47
DX: T84.51XA Infection and inflammatory reaction due to internal right hip prosthesis, initial encounter (principal); K21.9 Gastro-esophageal reflux disease without esophagitis; E66.9 Obesity, unspecified; E78.5 Hyperlipidemia, unspecified; E11.22 Type 2 diabetes mellitus with diabetic chronic kidney disease; E11.65 Type 2 diabetes mellitus with hyperglycemia; I12.9 Hypertensive chronic kidney disease with stage 1 through stage 4 chronic kidney disease, or unspecified chronic kidney disease; N18.31 Chronic kidney disease, stage 3a; G47.33 Obstructive sleep apnea (adult) (pediatric); I70.0 Atherosclerosis of aorta; D63.1 Anemia in chronic kidney disease; Z68.31 Body mass index [BMI] 31.0-31.9, adult
CPT/HCPCS: 99211

== ENCOUNTER 2021-12-23 07:14 | Day surgery (SDC) | payer MEDICARE ==
[~2021-12-23] VITALS: Ht 147.3 cm; Wt 71.3 kg
[~2021-12-23 07:14] MED LIST changes: +DHEA 10 MG TAB1 EAC1 PO; +MULVITA PO; +PROG100 PO; +SENNA LAXATIVE8.6 MG PO
--- NOTE | 2021-12-23 11:17 | NUR ---
UNBELICUS INCISION C.D.I. NAD, PWD, VSS OTHER THAN BP A LITTLE ELEVATED, PT IN PAIN MEDICATION GIVEN
--- NOTE | 2021-12-23 11:48 | NUR ---
PT WAS IN MORE PAIN, GAVE SECOND DOSE OF NORCO, RN HELPED PT GET DRESSED. NAD, PWD, INCISION C.D.I AT UMBELICUS. VSS BUT BP STILL ELEVATED. PTS PAIN IS AT AN 8 OF 10, 2ND DOSE OF PAIN MEDICATION HAS NOT KICKED IN
--- NOTE | 2021-12-23 12:07 | NUR ---
Discharge instructions reviewed with patient. Patient verbalizes understanding. Copy given to patient to take home.Lungs clear T/O to Auscultation. Discharged via wheelchair to private car for ride home. pt pain has decreased to 5 as rn was wheeling her out.
== END 2021-12-23 11:54 | disposition home or self-care (01) ==
LOC: ORSCMMR 07:14 → ORD 09:00 → ORSCMMR 09:00
PROVIDERS: Surgery
PROC: 0WUF0JZ Supplement Abdominal Wall with Synthetic Substitute, Open Approach (ICD-10-PCS; principal; 2021-12-23 09:00)
DX: K42.9 Umbilical hernia without obstruction or gangrene (principal); E11.22 Type 2 diabetes mellitus with diabetic chronic kidney disease; N18.30 Chronic kidney disease, stage 3 unspecified; I12.9 Hypertensive chronic kidney disease with stage 1 through stage 4 chronic kidney disease, or unspecified chronic kidney disease; E78.5 Hyperlipidemia, unspecified; G47.33 Obstructive sleep apnea (adult) (pediatric); K21.9 Gastro-esophageal reflux disease without esophagitis; Z79.84 Long term (current) use of oral hypoglycemic drugs; Z79.899 Other long term (current) drug therapy
CPT/HCPCS: 82947; A9270; C1781; J0690; J1100; J2405; J2704; J2795; J3010; J7120